=== PATIENT | female | born 1985 | race Caucasian/White ===

== ENCOUNTER 2016-07-21 16:46 | Inpatient (IN) | payer BC ==
[~2016-07-21] VITALS: Ht 170.2 cm; Wt 83.5 kg
[~2016-07-21 16:46] MED LIST: BENZ56AE TP; CODE-54 PO; DCS100C PO; FRS325T PO; Ibuprofen PO; PRNMV1T PO
[2016-07-21 17:07] VITALS: BP 132/84
[2016-07-21 17:25] LABS: BILIRUBIN,URINE NEGATIVE (NEGATIVE); KETONES,URINE 3+ (NEGATIVE); LEUKOCYTE ESTERASE ,URINE 3+ (NEGATIVE); NITRITE,URINE NEGATIVE (NEGATIVE); PH,URINE 8 (5-9); PROTEIN,URINE NEGATIVE (NEGATIVE); UROBILINOGEN,URINE NORMAL (NORMAL)
[2016-07-21] MEDS ORDERED: D5 LR IV SOLUTION 1,000 ML IV ONE (17:34)
[2016-07-21 17:35] LABS: SQUAMOUS EPITHELIAL CELL,UR >50 /HPF; WBC,URINE 50-100 /HPF
[2016-07-21] MEDS ORDERED: D5 LR IV SOLUTION 1,000 ML IV SCH (17:45)
[2016-07-21] MEDS: D5 LR IV SOLUTION 1,000 ML IV SCH ×2 (17:52→19:00)
--- NOTE | 2016-07-21 17:58 | History & Physical-OB ---
OB - Chief Complaint & HPI Date Date of Admission: Date of Admission: Chief Complaint/History OB-Reason for Admission/Chief: Hx : 2 Hx Para: 1 Expected Date of Delivery: Aug 05, 2016 Gestational Age in Weeks: 37 Gestational Age in Days: 6 Other reason for admission: Twila is a 30 y/o @ 37w6d patient of Dr. Foss who presents today with nausea, vomiting, abdominal pain and contractions. Pt reports she was just seen yesterday and was 1cm dilated. She was up most of the night with contractions (not overly painful, but reports she did not have painful ctx with her daughter who is almost 3 y/o either). Denies gushes of fluid like her water broke. Fetus is active. Reports cheeks are flushed and she feels feverish and chilled off and on today but has not taken her temp or any meds. Did have emesis overnight and hasn't consumed much PO intake since. No sick contacts although daughter has had a cough. uncomplicated, Rh negative status, GBSuria. History of Labs See summary Rh neg GBSuria Allergies and Home Medications Allergies Coded Allergies: No Known Drug Allergies (Unverified , 11/10/13) Home Medications Acetaminophen/Codeine 1 Tab Tablet, 1-2 TAB PO Q4H PRN for MODERATE TO SEVERE PAIN, #30 Prescribed by: VIGNESH FOSS on 11/12/13 0837 Benzocaine/Menthol 56 Ml Aerosol, 56 ML TP UD PRN for PAIN, #1 Prescribed by: VIGNESH FOSS on 11/12/13 0837 Docusate Sodium 100 Mg Cap, 100 MG PO BID PRN for CONSTIPATION, #20 Prescribed by: VIGNESH FOSS on 11/12/13 0837 Ferrous Sulfate 325 Mg Tab, 325 MG PO DAILY, #60 Prescribed by: VIGNESH FOSS on 11/12/13 0837 Multivit/Min/Fol Ac/Iron/Pren 1 Ea Tab, 1 EA PO DAILY@0700, #60 Prescribed by: VIGNESH FOSS on 11/12/13 0837 [Ibuprofen] 600 MG TAB, 600 MG PO Q6H PRN for PAIN, #60 Prescribed by: VIGNESH FOSS on 11/12/13 0837 OB - History Hx of Present Care: Yes Ultrasounds: Normal mid trimester US Obstetrical Complications: Other (Rh neg, gbsuria) Medical Complications: None Information Induced Hypertension: No Maternal Gestational Diabetes: No Obstetrical History Hx : 2 Hx Para: 1 Hx Termination: No Hx Multiple Gestation: No Hx Stillbirth: No Hx Complication: No Hx Induced Hypertens: No Hx Maternal Gestational Diabet: No Delivery History Hx Dystocia: No Hx Large For Gestational Age I: No Hx Small for Gestational Age I: No Hx Section: No Hx Vaginal Delivery Post C-Sec: No Hx Blood Disorders: No Adverse Rxn to Tranfusion: No Patient Past Medical History non-contributory Social History/Family History HIV/AIDS: No Recent Infectious Disease Expo: No Sexually Transmitted Disease: No Alcohol Use: Denies Use Smoking Cessation: Never smoker Immunizations Hepatitis A: No Hepatitis B: Yes Tetanus Booster (TDap): Less than 5yrs OB - Admission Exam Physical Exam Vitals: see brush holder inspector FHR 170s/min to mod variability/reactive, frequent loss of contact but no definite decelerations seen TOCO -05/21 Heart: Other Lungs: Clear Abdomen: Gravid (and non-tender) Cervical Dilatation: 2cm Effacement: 50% Station: -2 Membranes: Intact (palpable membrane) Accelerations: Accelerations Present Decelerations: No Decelerations Short Term Variability: Present Residential Variability: Average (6-25) Contractions on Admission: 6-10 Minutes Apart Labs Laboratory Tests Test 07/21/16 17:15 Range/Units Urine Color YELLOW Urine Clarity VERY CLOUDY H Urine pH 8 5-9 Urine Specific [place] 1.010 L 1.016-1.022 Urine Protein NEGATIVE NEGATIVE Urine Glucose (UA) NEGATIVE NEGATIVE Urine Ketones 3+ H NEGATIVE Urine Nitrite NEGATIVE NEGATIVE Urine Bilirubin NEGATIVE NEGATIVE Urine Urobilinogen NORMAL NORMAL MG/DL Urine Leukocyte Esterase 3+ H NEGATIVE Urine RBC (Auto) NEGATIVE NEGATIVE Urine RBC NONE /HPF Urine WBC 50-100 H /HPF Urine Squamous Epithelial Cells >50 H /HPF Urine Crystals NONE /LPF Urine Bacteria LARGE H /HPF Urine Casts NONE /LPF Urine Mucus NEGATIVE /LPF Urine Culture Indicated NO OB - Assessment/Plan/Diagnosis Plan Other Plan 30 y/o @ 37w6d with tachycardia, maternal subjective fevers/chills , contractions. Rh neg Patient of Dr. Foss Reviewed with pt my concern for tachycardia. Given her symptoms, could be r/t dehydration and poor po intake, but I am concerned she has been feeling feverish. She does not appear to be ruptured, but will check BPP. Will start IV and bolus in one liter of D5LR. Check CBC, CMP. Also check flu swab given her daughter's symptoms. If tracing improves and all studies reassuring, could consider discharge home but may need to consider IOL if tachycardia unresolved. She has changed SVE from 1cm in office yesterday to 2cm this AM so this could also represent early labor although I could not explain maternal/ tachycardia typically with just early labor. Will watch closely and await all studies. Plan discussed with pt and . RADHA MARINELLI MD Jul 21, 2016 17:58
[2016-07-21 18:08] LABS: BASOPHILS % (AUTO) 0 % (0-10); EOSINOPHILS % (AUTO) 0 % (0-10); LYMPHOCYTES # (AUTO) 0.7 X 10^3 (1.0-4.0); LYMPHOCYTES % (AUTO) 3 % (12-44); MEAN CORPUSCULAR HEMOGLOBIN 29 PG (25-34); MEAN CORPUSCULAR HGB CONC 33 G/DL (32-36); MEAN CORPUSCULAR VOLUME 89 FL (80-99); MEAN PLATELET VOLUME 11.4 FL (7.4-10.4); MONOCYTES % (AUTO) 5 % (0-12); NEUTROPHILS # (AUTO) 18.3 X 10^3 (1.8-7.8); NEUTROPHILS % (AUTO) 91 % (42-75); PLATELET COUNT 196 10^3/uL (130-400); RED BLOOD COUNT 4.26 10^6/uL (4.35-5.85); RED CELL DISTRIBUTION WIDTH 13.4 % (10.0-14.5); WHITE BLOOD COUNT 19.9 10^3/uL (4.3-11.0)
[2016-07-21] MEDS ORDERED: ACETAMINOPHEN 500 MG TAB (TYLENOL) PO NR (18:15)
[2016-07-21] MEDS ORDERED: ACETAMINOPHEN 500 MG TAB (TYLENOL) PO ONE (18:15)
[2016-07-21 18:27] LABS: ALANINE AMINOTRANSFERASE 17 U/L (0-55); ALBUMIN 3.4 G/DL (3.2-4.5); ANION GAP 12 MMOL/L (5-14); ASPARTATE AMINO TRANSFERASE 23 U/L (5-34); BILIRUBIN,TOTAL 0.5 MG/DL (0.1-1.0); BLOOD UREA NITROGEN 7 MG/DL (7-18); BUN/CREATININE RATIO 12; CALCIUM 9.3 MG/DL (8.5-10.1); CARBON DIOXIDE 21 MMOL/L (21-32); CHLORIDE 104 MMOL/L (98-107); CREATININE SERUM 0.58 MG/DL (0.60-1.30); GFR ESTIMATED > 60; GLUCOSE 81 MG/DL (70-105); POTASSIUM 3.7 MMOL/L (3.6-5.0); SODIUM 137 MMOL/L (135-145); TOTAL PROTEIN 6.4 G/DL (6.4-8.2)
[2016-07-21 18:36] LABS: LYMPHOCYTES % (MANUAL) 3 %; NEUTROPHILS % (MANUAL) 90 %
--- NOTE | 2016-07-21 18:42 | Diagnostic Imaging Report ---
INDICATION: tachycardia, maternal fever. EXAMINATION: biophysical profile was performed in the routine fashion. FINDINGS: Fetus scored 2 out of 2 in movement and posture and tone and amniotic fluid index. Amniotic fluid index was 11.3 cm. The fetus scored 0 out of two in breathing. heart rate is 197 beats per minute. Fetus is in cephalic presentation. IMPRESSION: biophysical profile score is 6/8 with score of 0 given for breathing. There is tachycardia with heart rate of 197 beats per minute. Amniotic fluid index is normal. Dictated by: Dictated on workstation # [id number]
[2016-07-21 19:00] VITALS: BP 126/96
[2016-07-21] MEDS ORDERED: OXYTOCIN/NORMAL SALINE 500 ML IV ONE (19:57)
[2016-07-21] MEDS ORDERED: NS (IVPB) 50 ML ONE (19:57)
[2016-07-21] MEDS ORDERED: AMPICILLIN 2000 MG INJECTION (IM/IV) ONE (19:57)
[2016-07-21] MEDS ORDERED: AMPICILLIN INJECTION 2,000 MG in NS (IVPB) 50 ML IV SCH (20:04)
[2016-07-21] MEDS ORDERED: OXYTOCIN/NORMAL SALINE 500 ML IV SCH (20:08)
[2016-07-21] MEDS ORDERED: CATHETER FLUSH 10 ML SYR IV PRN (20:15)
[2016-07-21 23:20] VITALS: BP 133/96
[2016-07-21 23:35] VITALS: BP 137/87
[2016-07-21] MEDS ORDERED: BUPIVACAINE 0.25% 30 ML (SENSORCAINE) VIAL ONE (23:47)
[2016-07-21 23:50] VITALS: BP 132/84
[2016-07-21] MEDS: AMPICILLIN INJECTION 1,000 MG in NS (IVPB) 50 ML IV SCH (23:59)
[2016-07-22] VITALS (56 sets, daily range): BP systolic 103–146; BP diastolic 56–95
[2016-07-22] MEDS ORDERED: EPIDURAL (SUFENTANIL 1 MCG/ML BUPIVACAINE 0.1%) 100 ML EP PRN
[2016-07-22] MEDS: SUFENTA 0.6MCG/ML BUPIVA 0.125 100 ML ONE (00:12)
[2016-07-22] MEDS ORDERED: LACTATED RINGERS 1,000 ML IV ONE (00:28)
[2016-07-22] MEDS ORDERED: NALOXONE 0.4 MG/ML 1 ML (NARCAN) VIAL IV PRN (00:30)
[2016-07-22] MEDS ORDERED: BUPIVACAINE 0.25% 30 ML (SENSORCAINE) VIAL INJ ONE (00:30)
[2016-07-22] MEDS ORDERED: EPIDURAL (SUFENTA 0.6MCG/ML BUPIVA 0.125%) 100 ML BAG EPI SCH (00:30)
[2016-07-22] MEDS ORDERED: ONDANSETRON 4 MG/2 ML (SDV) Z0FRAN IV PRN (00:30)
[2016-07-22] MEDS: AMPICILLIN INJECTION 1,000 MG in NS (IVPB) 50 ML IV SCH ×2 (03:56→08:07)
[2016-07-22] MEDS: D5 LR IV SOLUTION 1,000 ML IV SCH (03:56)
[2016-07-22] MEDS ORDERED: LIDOCAINE/EPI 1%-1:200,000 (XYLOCAINE) 30 ML VIAL ONE (10:25)
[2016-07-22] MEDS ORDERED: MINERAL OIL CONCENTRATE 99.9% 15 ML UDC ONE (10:25)
[2016-07-22] MEDS ORDERED: OXYTOCIN/NORMAL SALINE 500 ML IV SCH (11:09)
--- NOTE | 2016-07-22 11:14 | Discharge Inst-Women's Service ---
Discharge Inst-Women's Serv Depart Medication/Instructions New, Converted or Re-Newed RX: RX on Chart Consults/Follow Up Additional Follow Up: Yes Orders/Referrals Dr. Foss in 6 weeks Activity Activity: Activity as Tolerated Driving Instructions: No Driving for 1 Week NO SMOKING: NO SMOKING Nothing Inside Vagina: No Douching, No [place], No Tampons Diet Discharge Diet: No Restrictions Symptoms to Report to : Bleeding Excessive, Pain Increased, Fever Over 101 Degrees F, Vaginal Bleeding Increase, Questions/Concerns For Any Problems or Questions: Contact Your Physician Skin/Wound Care Bathing Instructions: Shower (x 2 weeks) VIGNESH FOSS DO Jul 22, 2016 11:14 am
[2016-07-22] MEDS ORDERED: MEASLES,MUMPS,RUBELLA 1 EA INJ SQ ONE (11:15)
[2016-07-22] MEDS ORDERED: TETANUS,DIPTH,PERTUSS P/F (BOOSTRIX) 0.5 ML VIAL IM ONE (11:15)
[2016-07-22] MEDS ORDERED: WITCH HAZEL(TUCKS) 40 EA JAR TOP PRN (11:15)
[2016-07-22] MEDS ORDERED: APAP 300 MG/CODEINE 30 MG (TYLENOL #3) TAB PO PRN (11:15)
[2016-07-22] MEDS ORDERED: DIBUCAINE (NUPERCAINAL) 1% OINT 30 GM TOP PRN (11:15)
[2016-07-22] MEDS ORDERED: BENZOCAINE/MENTHOL (DERMOPLAST) 56 ML CAN TP PRN (11:15)
[2016-07-22] MEDS ORDERED: FERR-74 PO (11:18)
[2016-07-22] MEDS ORDERED: IBUP-1773 PO (11:18)
[2016-07-22] MEDS ORDERED: ACET1TAB43 PO (11:18)
[2016-07-22] MEDS ORDERED: DOCU100C37 PO (11:18)
[2016-07-22] MEDS ORDERED: BENZ56AE2 TP (11:18)
--- NOTE | 2016-07-22 11:24 | OB Labor & Delivery Record ---
L&D History Date of Service Date of Service: Jul 22, 2016 History Expected Date of Delivery: Aug 05, 2016 Gestational Age in Weeks: 37 Hx : 2 Hx Para: 1 Complications Events: Routine care Operative Indications (Cesarea: N/A-Vaginal Delivery Intrapartal Events: None Other Complications Presentation of maternal leukocytosis with tachycardia, tachycardia which resolved after 2-4 hours of monitoring. L&D Stage1 Stage One Onset of Labor - Date: Jul 22, 2016 Monitors and Tracing Monitor Mode: External Heart Rate: 180 Monitor Accelerations: Uniform Monitor Decelerations: None Station: -2 Fpc Variability: Average (6-10) Short Term Variability: Present Presentation: Vertex Vital Signs VS - Last 72 Hours, by Label 07/21/16 07/21/16 07/21/16 07/21/16 17:07 17:27 19:00 19:20 Temp 99.2 98.8 98.4 Pulse 139 148 141 Resp 20 18 B/P (MAP) 132/84 126/96 Pulse Ox 98 97 O2 Delivery Room Air Room Air Room Air 07/21/16 07/21/16 07/21/16 07/21/16 19:35 20:10 20:20 20:35 Temp 97.7 Pulse 136 135 136 126 Resp 18 18 18 18 Pulse Ox 97 97 97 97 O2 Delivery Room Air Room Air Room Air Room Air 07/21/16 07/21/16 07/21/16 07/21/16 20:50 21:05 21:20 21:35 Pulse 129 128 137 137 Resp 18 18 18 18 Pulse Ox 97 96 97 97 O2 Delivery Room Air Room Air Room Air Room Air 07/21/16 07/21/16 07/21/16 07/21/16 21:50 22:05 22:20 22:35 Temp 97.0 Pulse 130 128 134 126 Resp 18 18 18 18 Pulse Ox 96 97 97 97 O2 Delivery Room Air Room Air Room Air Room Air 07/21/16 07/21/16 07/21/16 07/21/16 22:50 23:05 23:20 23:35 Pulse 118 121 131 126 Resp 18 18 18 18 B/P (MAP) 133/96 137/87 Pulse Ox 96 96 97 O2 Delivery Room Air Room Air Room Air Room Air 07/21/16 07/22/16 07/22/1613/17 23:50 00:05 00:10 00:15 Pulse 120 127 131 134 Resp 18 18 18 18 B/P (MAP) 132/84 137/88 131/86 126/76 Pulse Ox 98 98 97 O2 Delivery Room Air Room Air Room Air Room Air 07/22/16 07/22/16 07/22/16 07/22/16 00:20 00:25 00:30 00:35 Temp 96.9 Pulse 131 129 130 124 Resp 18 18 18 18 B/P (MAP) 131/79 133/75 127/58 118/63 Pulse Ox 97 99 99 99 O2 Delivery Room Air Room Air Room Air Room Air 07/22/16 07/22/16 07/22/16 07/22/16 00:55 01:10 01:25 01:40 Pulse 129 135 134 134 Resp 18 18 18 18 B/P (MAP) 119/68 115/65 118/69 115/60 Pulse Ox 98 96 99 97 O2 Delivery Room Air Room Air Room Air Room Air 07/22/16 07/22/16 07/22/16 07/22/16 01:55 02:10 02:25 02:40 Temp 98.3 Pulse 133 134 131 136 Resp 18 18 18 18 B/P (MAP) 117/65 132/78 118/74 144/84 Pulse Ox 98 98 98 97 O2 Delivery Room Air Room Air Room Air Room Air 07/22/16 07/22/16 07/22/16 07/22/16 02:55 03:10 03:25 03:40 Pulse 129 131 137 134 Resp 18 18 18 18 B/P (MAP) 134/79 127/69 134/82 123/74 Pulse Ox 96 96 98 98 O2 Delivery Room Air Room Air Room Air Room Air 07/22/16 07/22/16 07/22/16 07/22/16 03:55 04:10 04:25 04:40 Pulse 124 127 134 133 Resp 18 18 18 18 B/P (MAP) 126/67 110/64 115/71 Pulse Ox 97 96 97 97 O2 Delivery Room Air Room Air Room Air Room Air 07/22/16 07/22/16 07/22/16 07/22/16 04:55 05:10 05:25 05:40 Temp 99.0 Pulse 129 129 125 121 Resp 18 18 18 18 B/P (MAP) 120/77 116/68 127/77 110/62 Pulse Ox 96 96 99 95 O2 Delivery Room Air Room Air Room Air Room Air 07/22/16 07/22/16 07/22/16 07/22/16 05:55 06:10 06:25 06:40 Pulse 123 124 123 125 Resp 18 18 18 18 B/P (MAP) 103/56 105/58 124/74 122/80 Pulse Ox 95 96 97 95 O2 Delivery Room Air Room Air Room Air Room Air 07/22/16 07/22/16 06:55 07:10 Pulse 123 132 Resp 18 18 B/P (MAP) 128/86 129/89 Pulse Ox 96 97 O2 Delivery Room Air Room Air Rupture of Membranes Spontaneous Ruture of Membrane: No Amniotic Membrane Rupture Time: 0650 Amniotic Membrane Fluid Desc.: Clear Induction/Anesthesia Epidural Cath Placement - Time: 8 L&D Stage2 Stage Two Stage II Date: Jul 22, 2016 Monitors and Tracing Monitor Mode: External Heart Rate: 150 Monitor Accelerations: Uniform Monitor Decelerations: None Programming Equipment Operator Variability: Average (6-10) Position: Right Occiput Anterior Presentation: Vertex Cord Descript/Complications Cord Vessel Description: 3 Vessels Delivery Type Infant Delivery Method: Spontaneous Vaginal Anterior Shoulder: Left, Right Episiotomy/Perineal Laceration Laceraction(s)/Extensions: Yes Location Modifier: Left (left labial laceration) Degree (describe repair) repaired using 3-0 rapide Condition of Infant Delivery 1 minute Comment: 8 5 minute Comment: 9 Condition of Condition of Infant: Living Exam: No Observed Abnormalities live male weight pending Resuscitation Resuscitation: N/A - Spontaneous Resp L&D Stage3 Stage Three Stage III Date: Jul 22, 2016 Pictocin Pitocin Administration mu/min: 10 Pitocin ml/hr: 10 Pitocin Administration Comment: PITOCIN INCREASED PER PROTOCOL Placenta Delivery Placenta Delivery: Spontaneous Delivery Summary Summary blood loss >1000ml: No Vaginal blood loss >500ml: No 250 mL Attending at delivery: Vignesh Foss DO Condition of Delivery Examined: Cervix Examined, Uterus Explored Condition of Mother stable Condition of (s) stable VIGNESH FOSS DO Jul 22, 2016 11:23 am
[2016-07-22] MEDS: IBUPROFEN 600 MG (MOTRIN) TAB PO SCH ×2 (13:13→19:50)
[2016-07-22] MEDS ORDERED: CATHETER FLUSH 10 ML SYR IV SCH (14:00)
[2016-07-22] MEDS: DOCUSATE SODIUM 100 MG (COLACE) CAP PO SCH (19:54)
[2016-07-23] VITALS: BP 133/77
[2016-07-23] MEDS: SUFENTA 0.6MCG/ML BUPIVA 0.125 100 ML ONE (00:12)
[2016-07-23] MEDS: IBUPROFEN 600 MG (MOTRIN) TAB PO SCH ×2 (02:06→12:30)
[2016-07-23 04:00] VITALS: BP 120/74
[2016-07-23 06:47] LABS: BASOPHILS % (AUTO) 0 % (0-10); EOSINOPHILS # (AUTO) 0.1 10^3/uL (0.0-0.3); EOSINOPHILS % (AUTO) 1 % (0-10); LYMPHOCYTES # (AUTO) 1.2 X 10^3 (1.0-4.0); LYMPHOCYTES % (AUTO) 12 % (12-44); MEAN CORPUSCULAR HEMOGLOBIN 29 PG (25-34); MEAN CORPUSCULAR HGB CONC 32 G/DL (32-36); MEAN CORPUSCULAR VOLUME 91 FL (80-99); MEAN PLATELET VOLUME 11.4 FL (7.4-10.4); MONOCYTES # (AUTO) 0.6 X 10^3 (0.0-1.0); MONOCYTES % (AUTO) 6 % (0-12); NEUTROPHILS # (AUTO) 7.6 X 10^3 (1.8-7.8); NEUTROPHILS % (AUTO) 80 % (42-75); PLATELET COUNT 184 10^3/uL (130-400); RED BLOOD COUNT 4.03 10^6/uL (4.35-5.85); RED CELL DISTRIBUTION WIDTH 13.5 % (10.0-14.5); WHITE BLOOD COUNT 9.6 10^3/uL (4.3-11.0)
[2016-07-23] MEDS ORDERED: PRENATAL VITAMIN 1 EA TAB PO SCH (07:00)
[2016-07-23] MEDS ORDERED: FERROUS SULF 325 MG (IRON) TAB PO SCH (07:00)
[2016-07-23 08:00] VITALS: BP 132/87
[2016-07-23] MEDS ORDERED: DOCUSATE CALCIUM 240 MG (SURFAK) CAP PO SCH (09:00)
--- NOTE | 2016-07-23 10:41 | Postpartum Progress Note ---
Note Note Day # 1 Baby to be transferred to [facility] due to cardiac enlargement and possible tetrology of [place] Subjective: Patient is without complaints. Ambulating, voiding. Tolerating a regular diet without nausea or vomiting. Normal lochia. Pain is well controlled with oral pain medications. breast feeding. Objective: Laboratory Tests Test 07/23/16 06:30 Range/Units White Blood Count 9.6 4.3-11.0 10^3/uL Red Blood Count 4.03 L 4.35-5.85 10^6/uL Hemoglobin 11.6 11.5-16.0 G/DL Hematocrit 37 35-52 % Mean Corpuscular Volume 91 80-99 FL Mean Corpuscular Hemoglobin 29 25-34 PG Mean Corpuscular Hemoglobin Concent 32 32-36 G/DL Red Cell Distribution Width 13.5 10.0-14.5 % Platelet Count 184 130-400 10^3/uL Mean Platelet Volume 11.4 H 7.4-10.4 FL Neutrophils (%) (Auto) 80 H 42-75 % Lymphocytes (%) (Auto) 12 12-44 % Monocytes (%) (Auto) 6 0-12 % Eosinophils (%) (Auto) 1 0-10 % Basophils (%) (Auto) 0 0-10 % Neutrophils # (Auto) 7.6 1.8-7.8 X 10^3 Lymphocytes # (Auto) 1.2 1.0-4.0 X 10^3 Monocytes # (Auto) 0.6 0.0-1.0 X 10^3 Eosinophils # (Auto) 0.1 0.0-0.3 10^3/uL Basophils # (Auto) 0.0 0.0-0.1 10^3/uL Vital Sign - Last 12Hours 07/23/16 07/23/16 07/23/16 00:00 04:00 08:00 Temp 98.4 98.7 97.0 Pulse 114 74 90 Resp 17 18 20 B/P (MAP) 133/77 120/74 132/87 Pulse Ox 97 99 98 O2 Delivery Room Air Room Air Room Air Intake and Output 07/23/16 00:00 Intake Total 1500 ml Balance 1500 ml Physical Exam: General - Alert and oriented, no apparent distress Abdomen - Soft, appropriately tender to palpation, non-distended, fundus firm at umbilicus Extremities - no edema, negative Jair's bilaterally Assessment: 1. post- day # 1, status post spontaneous vaginal delivery. Recovering well, hemodynamically stable Plan: Routine care. Encourage breast feeding. Encourage ambulation. Plan for discharge today Vitals - Labs Vital Signs - I&O Vital Signs Date Time Temp Pulse Resp B/P (MAP) Pulse Ox O2 Delivery O2 Flow Rate FiO2 07/23/16 08:00 97.0 90 20 132/87 98 Room Air 07/23/16 04:00 98.7 74 18 120/74 99 Room Air 07/23/16 00:00 98.4 114 17 133/77 97 Room Air 07/22/16 20:00 98.4 84 19 125/82 98 Room Air 07/22/16 13:10 121 18 140/95 Room Air 07/22/16 12:55 120 18 140/87 Room Air 07/22/16 12:40 118 18 131/84 Room Air 07/22/16 12:25 98.0 116 18 128/85 Room Air 07/22/16 12:10 120 18 131/78 Room Air 07/22/16 11:55 122 18 130/83 Room Air 07/22/16 11:51 122 18 134/87 Room Air 07/22/16 11:26 123 18 146/64 Room Air 07/22/16 11:10 125 18 133/87 Room Air 07/22/16 10:55 133 18 125/78 Room Air 07/22/16 10:42 131 18 144/91 100 Room Air I & O 07/23/16 06:59 Intake Total 2050 ml Balance 2050 ml Labs Laboratory Tests 07/23/16 06:30: White Blood Count 9.6, Red Blood Count 4.03L, Hemoglobin 11.6, Hematocrit 37, Mean Corpuscular Volume 91, Mean Corpuscular Hemoglobin 29, Mean Corpuscular Hemoglobin Concent 32, Red Cell Distribution Width 13.5, Platelet Count 184, Mean Platelet Volume 11.4H, Neutrophils (%) (Auto) 80H, Lymphocytes (%) (Auto) 12, Monocytes (%) (Auto) 6, Eosinophils (%) (Auto) 1, Basophils (%) (Auto) 0, Neutrophils # (Auto) 7.6, Lymphocytes # (Auto) 1.2, Monocytes # (Auto) 0.6, Eosinophils # (Auto) 0.1, Basophils # (Auto) 0.0 Microbiology 07/21/16 Influenza Types A,B Antigen (AARTI) - Final, Complete 07/21/16 Urine Culture - Preliminary, Resulted Strep Agalactiae Group B LYNETTE COON DO Jul 23, 2016 10:41
[2016-07-23] MEDS: DOCUSATE SODIUM 100 MG (COLACE) CAP PO SCH (12:30)
--- NOTE | 2016-07-23 14:07 | Anesthesia-Regional Post-Op ---
Regional Patient Condition Mental Status: Alert, Oriented x3 Circulation: Same as Pre-Op Headache: Absent Sensation: Full Recovery Motor Block: Absent Post Op Complications Complications None Follow Up Care/Instructions Patient Instructions None needed. Anesthesia/Patient Condition Patient is doing well, no complaints, stable vital signs, no apparent adverse anesthesia problems. ANTONIO HERNANDEZ DO Jul 23, 2016 14:07
== END 2016-07-23 14:10 | disposition home or self-care (01) | DRG 775 ==
LOC: WSo 16:46 → LDRP 16:49 → WSo 18:55 → LDRP 18:55
PROVIDERS: ADMIT Obstetrics & Gynecology; ATTEND Obstetrics & Gynecology
PROC: 0HQ9XZZ Repair Perineum Skin, External Approach (ICD-10-PCS; principal; 2016-07-22)
PROC: 10E0XZZ Delivery of Products of Conception, External Approach (ICD-10-PCS; 2016-07-22)
DX: O76 Abnormality in fetal heart rate and rhythm complicating labor and delivery (principal); O70.0 First degree perineal laceration during delivery; Z3A.37 37 weeks gestation of pregnancy; Z37.0 Single live birth
CPT/HCPCS: 36415; 76819; 80053; 81000; 83033; 85007; 85025; 85027; 86850; 86900; 86901; 87088; 87804; 93005; 99212

== ENCOUNTER 2017-12-20 06:15 | Outpatient (CLI) | payer BC ==
[~2017-12-20] VITALS: Ht 170.2 cm; Wt 65.8 kg
[~2017-12-20 06:15] MED LIST changes: +ACET1TAB43 PO; +BENZ56AE2 TP; +DOCU100C37 PO; +FERR325T18 PO; +IBUP-1773 PO
[2017-12-20] MEDS ORDERED: PREN-8 PO (10:47)
== END 2017-12-20 10:52 | disposition home or self-care (01) ==
LOC: PREOP 06:15
PROVIDERS: ATTEND Obstetrics & Gynecology
DX: Z01.818 Encounter for other preprocedural examination (principal)

== ENCOUNTER 2017-12-22 06:13 | Day surgery (SDC) | payer BC ==
[~2017-12-22] VITALS: Ht 170.2 cm; Wt 65.8 kg
[~2017-12-22 06:13] MED LIST changes: +PREN-8 PO
[2017-12-22 06:35] VITALS: BP 111/78
[2017-12-22] MEDS ORDERED: SCOPOLAMINE 1.5 MG (TRANSDERM-SCOP) PATCH TOP ONE (06:45)
[2017-12-22] MEDS ORDERED: ONDANSETRON 4 MG/2 ML (SDV) Z0FRAN IV ONE (06:45)
[2017-12-22] MEDS ORDERED: FAMOTIDINE 20MG/2ML IV (PEPCID) IV ONE (06:45)
[2017-12-22] MEDS ORDERED: LIDOCAINE PF 2% 2 ML (XYLOCAINE) VIAL ONE (06:51)
[2017-12-22] MEDS ORDERED: fentaNYL INJECTION 100 MCG/2 ML AMP ONE (06:51)
[2017-12-22] MEDS ORDERED: proPOfol 200 MG/20 ML (DIPRIVAN) VIAL IV ONE (06:51)
[2017-12-22] MEDS ORDERED: DEXAMETHASONE 10 MG/ML (DECADRON) 1 ML VIAL ONE (06:51)
[2017-12-22] MEDS ORDERED: MIDAZOLAM 2 MG/2 ML (VERSED) VIAL ONE (06:52)
[2017-12-22 06:57] LABS: BASOPHILS % (AUTO) 0 % (0-10); EOSINOPHILS # (AUTO) 0.1 10^3/uL (0.0-0.3); EOSINOPHILS % (AUTO) 2 % (0-10); HEMATOCRIT 38 % (35-52); HEMOGLOBIN 12.8 G/DL (11.5-16.0); LYMPHOCYTES # (AUTO) 1.1 X 10^3 (1.0-4.0); LYMPHOCYTES % (AUTO) 19 % (12-44); MEAN CORPUSCULAR HEMOGLOBIN 29 PG (25-34); MEAN CORPUSCULAR HGB CONC 34 G/DL (32-36); MEAN CORPUSCULAR VOLUME 87 FL (80-99); MEAN PLATELET VOLUME 10.1 FL (7.4-10.4); MONOCYTES # (AUTO) 0.4 X 10^3 (0.0-1.0); MONOCYTES % (AUTO) 6 % (0-12); NEUTROPHILS # (AUTO) 4.5 X 10^3 (1.8-7.8); NEUTROPHILS % (AUTO) 74 % (42-75); PLATELET COUNT 244 10^3/uL (130-400); RED BLOOD COUNT 4.35 10^6/uL (4.35-5.85); RED CELL DISTRIBUTION WIDTH 12.6 % (10.0-14.5); WHITE BLOOD COUNT 6.1 10^3/uL (4.3-11.0)
[2017-12-22] MEDS: LACTATED RINGERS 1,000 ML IV PRN ×2 (06:59→07:52)
--- NOTE | 2017-12-22 07:23 | Progress Note-Pre Operative ---
Pre-Operative Progress Note H&P Reviewed The H&P was reviewed, patient examined and no changes noted. Date Seen by Provider: Dec 22, 2017 Time Seen by Provider: 07:10 Date H&P Reviewed: Dec 22, 2017 Time H&P Reviewed: 07:15 Pre-Operative Diagnosis: Missed VIGNESH Bolton DO Dec 22, 2017 7:23 am
--- NOTE | 2017-12-22 07:24 | Discharge Inst-Women's Service ---
Discharge Inst-Women's Serv Depart Medication/Instructions New, Converted or Re-Newed RX: RX on Chart Consults/Follow Up Additional Follow Up: Yes Orders/Referrals Dr. Foss in 3-4 Activity Activity: Activity as Tolerated Driving Instructions: No Driving for 1 Week NO SMOKING: NO SMOKING Nothing Inside Vagina: No Douching, No [place], No Tampons Diet Discharge Diet: No Restrictions Symptoms to Report to : Bleeding Excessive, Pain Increased, Fever Over 101 Degrees F, Vaginal Bleeding Increase, Questions/Concerns For Any Problems or Questions: Contact Your Physician Skin/Wound Care Bathing Instructions: Shower (x 2 weeks) VIGNESH FOSS DO Dec 22, 2017 7:24 am
[2017-12-22] MEDS ORDERED: IBUP-1773 PO (07:25)
[2017-12-22] MEDS ORDERED: ACET-789 PO (07:25)
[2017-12-22] MEDS ORDERED: LACTATED RINGERS 1,000 ML IV ONE (07:46)
[2017-12-22] MEDS ORDERED: SEVOFLURANE (ULTANE) 15 ML INHAL SOLN ONE (07:46)
[2017-12-22] MEDS ORDERED: MEPERIDINE (DEMEROL) INJ 50 MG/ML IVP ONE (08:00)
[2017-12-22] MEDS ORDERED: ONDANSETRON 4 MG/2 ML (SDV) Z0FRAN IVP PRN (08:00)
[2017-12-22] MEDS ORDERED: HYDROmorphone 2 MG/ML VIAL (DILAUDID) IV ONE (08:00)
[2017-12-22] MEDS ORDERED: fentaNYL INJECTION 100 MCG/2 ML AMP IVP ONE (08:00)
[2017-12-22] MEDS ORDERED: PROMETHAZINE INJ 25 MG/ML (PHENERGAN) AMP IVP ONE (08:00)
[2017-12-22 08:45] VITALS: BP 115/78
[2017-12-22 09:15] VITALS: BP 111/76
[2017-12-22 09:40] VITALS: BP 111/76
[2017-12-22 09:44] VITALS: BP 117/79
--- NOTE | 2017-12-22 13:50 | OPERATIVE REPORT ---
DATE OF SERVICE: 12/22/2017 PREOPERATIVE DIAGNOSIS: A 32-year-old female with missed AB. POSTOPERATIVE DIAGNOSIS: A 32-year-old female with missed. PROCEDURE: Suction D and C. SURGEON: Vignesh Foss DO ANESTHESIA: General. ESTIMATED BLOOD LOSS: 300 mL. URINE OUTPUT: 50 mL, clear drained at the start of the procedure. FLUIDS: 1200 mL lactated Ringer's solution. FINDINGS: Moderate amount of products of conception as well as a cervical polyp. These two specimens were sent as separate. Specimens sent are cervical polyp biopsy and products of conception. INDICATION FOR PROCEDURE: A 32-year-old female patient that was in my office initially for visit and was found to have demise at approximately 6 weeks on ultrasound as well as the following quantitative beta hCG. I discussed with the patient conservative management and we waited approximately two weeks prior to proceeding with more aggressive management, but at that point, she wished to proceed with D and C. Risks of procedure were discussed with her and her in detail including risk of bleeding, infection, damaging the uterus as well as postoperative expectations, recovery timeframe, and expectations in followup. After everything was discussed with the patient, all her questions were answered, consent was obtained. The patient was taken to the operating room. OPERATIVE REPORT IN DETAIL: Once in the operating room, anesthesia was found to be adequate. She was placed in dorsal lithotomy position, prepped and draped in normal sterile fashion. The bladder was then drained using straight catheterization. A weighted speculum was inserted in the patient's vagina. A right angle retractor was used to visualize the cervix, which was grasped at 12 o'clock position using a long Allis clamp. I then gently sound the uterine cavity depth, which was found to be 7 cm. I gently dilated the cervix using Letitia dilators to maximum dilatation of 8 mm. I then selected an #8 rigid suction curette and attached it to the Stanton device. I placed a curette into the endometrial cavity and activated the Stanton device. The suction is able to reach a maximum pressure of 55 mmHg, at which point, I methodically on several passes, cleared the endometrial cavity by both rotating the curette and making several passes. After this was done, I performed a gentle curetting of the endometrial cavity as well. There was no residual tissue. I made one final pass with the Stanton suction curette after which bleeding was noted to be minimal. I then grasped the endometrial polyp at the external cervical os using a long ring forcep twisting it off. There was a small amount of bleeding noted from the pedicle, which I made hemostatic using silver nitrate. After which, there was no active bleeding noted from the cervix or from the pedicle site. The patient tolerated the procedure well and was taken to recovery area in stable condition. Lap and sponge counts were correct at the end of procedure, instrument count was correct as well. Job ID: [id number] DocumentID: [id number] Dictated Date: 12/22/2017 09:46:39 Planting Material Unloader Date: 12/22/2017 13:50:33 Dictated By: VIGNESH FOSS DO
--- NOTE | 2017-12-22 13:59 | Anesthesia-General Post-Op ---
General Patient Condition Mental Status/LOC: Same as Preop Cardiovascular: Satisfactory Nausea/Vomiting: Absent Respiratory: Satisfactory Pain: Controlled Complications: Absent Post Op Complications Complications None Follow Up Care/Instructions Patient Instructions None needed. Anesthesia/Patient Condition Patient Condition Patient is doing well, no complaints, stable vital signs, no apparent adverse anesthesia problems. No complications reported per nursing. YURIDIA VALDES CRNA Dec 22, 2017 13:59
== END 2017-12-22 09:50 | disposition home or self-care (01) ==
LOC: SDC 06:13
PROVIDERS: ATTEND Obstetrics & Gynecology
DX: O02.1 Missed abortion (principal); N84.1 Polyp of cervix uteri
CPT/HCPCS: 36415; 85025; 86850; 86900; 86901; 87081; 88305

== ENCOUNTER → 2018-10-18 | Outpatient (CLI) | payer BC ==
[~2018-10-18] MED LIST changes: +ACET-789 PO
--- NOTE | 2018-10-18 16:24 | Diagnostic Imaging Report ---
INDICATION: Undergoing survey assessment during normal . TECHNIQUE: Multiple real-time grayscale images were obtained over the gravid uterus. COMPARISON: None. FINDINGS: There is presence of a single viable intrauterine currently in cephalic presentation. Amniotic fluid within normal limits. Placenta along the anterior aspect and without evidence for previa. cardiac activity demonstrated at 156 beats per minute. Visualized anatomical structures including the kidneys, bladder, stomach, intracranial structures, four-chamber heart, three-vessel cord and cord insertion site appearing unremarkable. The spine is not well evaluated given positioning. Cervical length approximately 3.7 cm. Maternal adnexa not visualized. Biometrical measurements are as follows: Biparietal 5.16 cm, age 21 weeks 5 days. Head circumference 18.35 cm, age 20 weeks 6 days. Abdominal circumference 16.09 cm, age 21 weeks 2 days. Femur length 3.40 cm, age 20 weeks 5 days. Sonographic estimate age: 21 weeks 1 days. Sonographic estimated date of delivery: 02/27/2019. Estimated Weight: 389 gm (+/- 57 gm). LMP percentile: 75%. heart rate: 156 beats per minute. number: 1 of 1. IMPRESSION: 1. Single viable intrauterine currently in a cephalic presentation, sonographic estimated age 21 weeks 1 day for an estimated date of delivery 02/27/2019. 2. No abnormality is noted at this time. However, the spine cannot be well visualized given positioning. Dictated by: Dictated on workstation # [id number]
== END ==
LOC: RAD 14:51
PROVIDERS: ATTEND Obstetrics & Gynecology
DX: Z36.89 Encounter for other specified antenatal screening (principal); Z3A.21 21 weeks gestation of pregnancy
CPT/HCPCS: 76805

== ENCOUNTER 2019-02-21 04:26 | Inpatient (IN) | payer BC, OTHER ==
[~2019-02-21] VITALS: Ht 170.2 cm; Wt 87.3 kg
[2019-02-21] VITALS (24 sets, daily range): BP systolic 99–147; BP diastolic 55–85
--- NOTE | 2019-02-21 04:35 | NUR ---
DANIELLA ARROYO presented to unit via W/C from HOME/ED, accompanied by SO, with c/o CONTRACTIONS,PRESSURE. DANIELLA ARROYO weighed, gowned, voided, and to bed. EFHM and TOCO applied, VS taken. DANIELLA ARROYO oriented to bed controls, call light, TV, heat, and A/C controls.
[2019-02-21] MEDS ORDERED: D5 LR IV SOLUTION 1,000 ML IV SCH (05:02)
[2019-02-21] MEDS ORDERED: NS IV 500 ML 500 ML ONE (05:05)
[2019-02-21] MEDS ORDERED: D5 LR IV SOLUTION 1,000 ML IV ONE (05:05)
[2019-02-21] MEDS ORDERED: NS IV 500 ML 500 ML IV ONE (05:15)
[2019-02-21 05:41] LABS: BILIRUBIN,URINE NEGATIVE (NEGATIVE); CLARITY,URINE CLEAR; COLOR,URINE YELLOW; GLUCOSE, URINE (UA) NEGATIVE (NEGATIVE); KETONES,URINE NEGATIVE (NEGATIVE); LEUKOCYTE ESTERASE ,URINE NEGATIVE (NEGATIVE); NITRITE,URINE NEGATIVE (NEGATIVE); PROTEIN,URINE NEGATIVE (NEGATIVE)
[2019-02-21 05:42] LABS: BASOPHILS % (AUTO) 0 % (0-10); EOSINOPHILS % (AUTO) 0 % (0-10); HEMATOCRIT 37 % (35-52); HEMOGLOBIN 11.8 G/DL (11.5-16.0); LYMPHOCYTES # (AUTO) 0.6 X 10^3 (1.0-4.0); LYMPHOCYTES % (AUTO) 3 % (12-44); MEAN CORPUSCULAR HEMOGLOBIN 29 PG (25-34); MEAN CORPUSCULAR HGB CONC 32 G/DL (32-36); MEAN CORPUSCULAR VOLUME 90 FL (80-99); MEAN PLATELET VOLUME 11.4 FL (7.4-10.4); MONOCYTES % (AUTO) 6 % (0-12); NEUTROPHILS # (AUTO) 17.2 X 10^3 (1.8-7.8); NEUTROPHILS % (AUTO) 91 % (42-75); PLATELET COUNT 181 10^3/uL (130-400); RED CELL DISTRIBUTION WIDTH 13.2 % (10.0-14.5); WHITE BLOOD COUNT 18.9 10^3/uL (4.3-11.0)
[2019-02-21 05:47] LABS: BACTERIA,URINE TRACE /HPF; WBC,URINE 0-2 /HPF
[2019-02-21] MEDS ORDERED: CATHETER FLUSH 10 ML SYR IV SCH ×2 (06:00→14:00)
[2019-02-21 06:06] LABS: LYMPHOCYTES % (MANUAL) 1 %; MONOCYTES % (MANUAL) 7 %; NEUTROPHILS % (MANUAL) 92 %; RBC MORPH NORMAL
--- NOTE | 2019-02-21 07:30 | NUR ---
Dr. Diaz called to check on pt, update given, new orders rc'd for Pitocin protocol.
[2019-02-21] MEDS ORDERED: OXYTOCIN/NORMAL SALINE 500 ML IV SCH ×2 (07:32→12:08)
--- NOTE | 2019-02-21 08:01 | History & Physical-OB ---
OB - Chief Complaint & HPI Date/Time Date of Admission: Date of Admission: Feb 21, 2019 at 04:59 Date seen by a Provider: Feb 21, 2019 Time Seen by a Provider: 07:55 Chief Complaint/History OB-Reason for Admission/Chief: Onset of Labor Hx : 4 Hx Para: 2 Expected Date of Delivery: Mar 04, 2019 Gestational Age in Weeks: 38 Gestational Age in Days: 3 Admission Nurse Assessment Rev: Yes Other Patient admitted with persistent and maternal tachycardia due to 38 week, plan for delivery Allergies and Home Medications Allergies Coded Allergies: No Known Drug Allergies (Unverified , 11/10/13) Home Medications Vit W-Ca,Fe,FA(<1 mg) 1 Each Tablet, 1 EACH PO DAILY, (Reported) Patient Home Medication List Home Medication List Reviewed: Yes OB - History Hx of Present Care: Yes Ultrasounds: Normal mid trimester US Obstetrical Complications: None Medical Complications: None Obstetrical History Hx : 4 Hx Para: 2 Hx Termination: No Hx Total # of Abortions (Spona: 1 Hx Multiple Gestation: No Hx Stillbirth: No Hx Complication: No Hx Induced Hypertens: No Hx Maternal Gestational Diabet: No Delivery History Hx Dystocia: No Hx Large For Gestational Age I: No Hx Small for Gestational Age I: No Hx Section: No Hx Vaginal Delivery Post C-Sec: No Hx Blood Disorders: No Adverse Rxn to Tranfusion: No Patient Past Medical History non-contributory Social History/Family History HIV/AIDS: No Recent Infectious Disease Expo: No Sexually Transmitted Disease: No Alcohol Use: Denies Use Recreational Drug Use: No 2nd Hand Smoke Exposure: No Immunizations Hepatitis A: No Hepatitis B: Yes Tetanus Booster (TDap): Less than 5yrs OB - Admission Exam Physical Exam Vitals: Vital Signs 02/21/19 05:00 Temp 37.2 Pulse 140 Resp 18 Pulse Ox 97 O2 Delivery Room Air HEENT: NCAT Heart: Rhythm Normal Lungs: Clear Abdomen: Gravid Extremities: Normal Reflexes: Normal Cervical Dilatation: 3cm Effacement: 50% Station: -1 Membranes: Intact Heart Rate: 130's Accelerations: Accelerations Present Decelerations: No Decelerations Short Term Variability: Present Mcfp Variability: Average (6-25) Contractions on Admission: < 5 Minutes Apart Intensity: Firm Labs Laboratory Tests Test 02/21/19 05:15 Range/Units White Blood Count 18.9 H 4.3-11.0 10^3/uL Red Blood Count 4.08 L 4.35-5.85 10^6/uL Hemoglobin 11.8 11.5-16.0 G/DL Hematocrit 37 35-52 % Mean Corpuscular Volume 90 80-99 FL Mean Corpuscular Hemoglobin 29 25-34 PG Mean Corpuscular Hemoglobin Concent 32 32-36 G/DL Red Cell Distribution Width 13.2 10.0-14.5 % Platelet Count 181 130-400 10^3/uL Mean Platelet Volume 11.4 H 7.4-10.4 FL Neutrophils (%) (Auto) 91 H 42-75 % Lymphocytes (%) (Auto) 3 L 12-44 % Monocytes (%) (Auto) 6 0-12 % Eosinophils (%) (Auto) 0 0-10 % Basophils (%) (Auto) 0 0-10 % Neutrophils # (Auto) 17.2 H 1.8-7.8 X 10^3 Lymphocytes # (Auto) 0.6 L 1.0-4.0 X 10^3 Monocytes # (Auto) 1.0 0.0-1.0 X 10^3 Eosinophils # (Auto) 0.0 0.0-0.3 10^3/uL Basophils # (Auto) 0.0 0.0-0.1 10^3/uL Neutrophils % (Manual) 92 % Lymphocytes % (Manual) 1 % Monocytes % (Manual) 7 % Blood Morphology Comment NORMAL Urine Color YELLOW Urine Clarity CLEAR Urine pH 8.0 5-9 Urine Specific [place] 1.015 L 1.016-1.022 Urine Protein NEGATIVE NEGATIVE Urine Glucose (UA) NEGATIVE NEGATIVE Urine Ketones NEGATIVE NEGATIVE Urine Nitrite NEGATIVE NEGATIVE Urine Bilirubin NEGATIVE NEGATIVE Urine Urobilinogen 0.2 < = 1.0 MG/DL Urine Leukocyte Esterase NEGATIVE NEGATIVE Urine RBC (Auto) NEGATIVE NEGATIVE Urine RBC NONE /HPF Urine WBC 0-2 /HPF Urine Squamous Epithelial Cells 5-10 /HPF Urine Crystals NONE /LPF Urine Bacteria TRACE /HPF Urine Casts NONE /LPF Urine Mucus NEGATIVE /LPF Urine Culture Indicated NO OB - Assessment/Plan/Diagnosis Assessment Assessment: active labor Admission Dx 33 yo @ 38.3 Persistent tachycardia Maternal tachycardia Active labor (made change 1-3cm) GBS neg Admission Status: Inpatient Order (span 2 midnights) Reason for Inpatient Admission: Active labor at term Plan Plan: Expectant Management VIGNESH FOSS DO Feb 21, 2019 08:00 POS
--- NOTE | 2019-02-21 12:14 | OB Labor & Delivery Record ---
L&D History Date of Service Date of Service: Feb 21, 2019 History Expected Date of Delivery: Mar 04, 2019 Gestational Age in Weeks: 38 Hx : 4 Hx Para: 2 Complications Events: Routine care Operative Indications (Cesarea: N/A-Vaginal Delivery Intrapartal Events: None L&D Stage1 Stage One Onset of Labor - Date: Feb 21, 2019 Monitors and Tracing Monitor Mode: Internal Heart Rate: 175 Monitor Accelerations: Uniform Station: -1 Fdc Variability: Average (6-10) Short Term Variability: Present Presentation: Vertex Vital Signs VS - Last 72 Hours, by Label POS 02/21/19 02/21/19 02/21/19 02/21/19 04:47 05:00 07:20 07:45 Temp 37.2 37.2 35.8 Pulse 140 140 131 135 Resp 18 18 18 18 B/P (MAP) 99/55 (70) 119/59 (79) Pulse Ox 97 97 97 97 O2 Delivery Room Air Room Air Room Air Room Air 02/21/19 02/21/19 02/21/19 02/21/19 08:00 08:15 08:30 08:45 Pulse 137 131 133 130 Resp 18 18 18 18 B/P (MAP) 131/85 (100) 123/70 (87) 120/70 (87) 120/71 (87) Pulse Ox 99 99 98 98 O2 Delivery Room Air Room Air Room Air Room Air 02/21/19 02/21/19 02/21/19 09:00 09:15 09:30 Pulse 133 131 129 Resp 18 18 18 B/P (MAP) 139/76 (97) 126/76 (93) 124/79 (94) Pulse Ox 97 97 95 O2 Delivery Room Air Room Air Room Air Rupture of Membranes Spontaneous Ruture of Membrane: No Amniotic Membrane Rupture Time: 0805 Amniotic Membrane Fluid Desc.: Clear Vaginal Bleeding Description: Normal Show Progress/Notes Patient progressed with low dose pitocin augmentation to complete and + 2 station without any pain medication nor epidural L&D Stage2 Stage Two Stage II Date: Feb 21, 2019 Monitors and Tracing Monitor Mode: Internal Heart Rate: 175 Monitor Decelerations: Variable Fdc Variability: Average (6-10) Short Term Variability: Present Position: Right Occiput Anterior Presentation: Vertex Cord Descript/Complications Cord Vessel Description: 3 Vessels Delivery Type Delivery Method: Spontaneous Vaginal Anterior Shoulder: Right Episiotomy/Perineal Laceration Laceraction(s)/Extensions: No Condition of Delivery 1 minute Comment: 8 5 minute Comment: 9 Notes Live female weight 7lbs 13 oz Condition of Condition of Infant: Living Exam: No Observed Abnormalities Resuscitation Resuscitation: N/A - Spontaneous Resp L&D Stage3 Stage Three Stage III Date: Feb 21, 2019 Pictocin Pitocin Administration mu/min: 4 Pitocin ml/hr: 4 Pitocin Administration Comment: pitocin increased wide open after delivery of placenta Placenta Delivery Placenta Delivery: Spontaneous Delivery Summary Summary Estimated blood loss (mL): 300 Attending at delivery: Vignesh Foss DO Condition of Delivery Examined: Cervix Examined, Uterus Explored Post Hemorrhage: No Condition of Mother stable Condition of (s) stable VIGNESH FOSS DO Feb 21, 2019 12:14 pm POS
[2019-02-21] MEDS ORDERED: BENZOCAINE/MENTHOL (DERMOPLAST) 56 ML CAN TP PRN (12:15)
[2019-02-21] MEDS ORDERED: HYDROcodone/APAP 5 MG/325 MG (LORTAB) TAB PO PRN (12:15)
[2019-02-21] MEDS ORDERED: WITCH HAZEL(TUCKS) 40 EA JAR TOP PRN (12:15)
[2019-02-21] MEDS ORDERED: TETANUS,DIPTH,PERTUSS P/F (BOOSTRIX) 0.5 ML VIAL IM ONE (12:15)
[2019-02-21] MEDS ORDERED: MEASLES,MUMPS,RUBELLA 1 EA INJ SQ ONE (12:15)
[2019-02-21] MEDS: IBUPROFEN 600 MG (MOTRIN) TAB PO SCH ×2 (12:50→17:45)
--- NOTE | 2019-02-21 19:18 | NUR ---
report given to next shift.
[2019-02-21] MEDS: DOCUSATE SODIUM 100 MG (COLACE) CAP PO SCH (20:49)
[2019-02-22 01:00] VITALS: BP 122/68
[2019-02-22] MEDS: IBUPROFEN 600 MG (MOTRIN) TAB PO SCH ×3 (01:02→13:16)
[2019-02-22 05:15] VITALS: BP 135/91
[2019-02-22 06:42] LABS: BASOPHILS % (AUTO) 0 % (0-10); EOSINOPHILS % (AUTO) 0 % (0-10); HEMATOCRIT 37 % (35-52); HEMOGLOBIN 11.8 G/DL (11.5-16.0); LYMPHOCYTES # (AUTO) 0.8 X 10^3 (1.0-4.0); LYMPHOCYTES % (AUTO) 6 % (12-44); MEAN CORPUSCULAR HEMOGLOBIN 29 PG (25-34); MEAN CORPUSCULAR HGB CONC 32 G/DL (32-36); MEAN CORPUSCULAR VOLUME 91 FL (80-99); MEAN PLATELET VOLUME 10.8 FL (7.4-10.4); MONOCYTES # (AUTO) 0.6 X 10^3 (0.0-1.0); MONOCYTES % (AUTO) 5 % (0-12); NEUTROPHILS # (AUTO) 11.3 X 10^3 (1.8-7.8); NEUTROPHILS % (AUTO) 89 % (42-75); PLATELET COUNT 176 10^3/uL (130-400); RED CELL DISTRIBUTION WIDTH 13.8 % (10.0-14.5); WHITE BLOOD COUNT 12.7 10^3/uL (4.3-11.0)
[2019-02-22] MEDS ORDERED: PRENATAL VITAMIN 1 EA TAB PO SCH (07:00)
[2019-02-22] MEDS: DOCUSATE SODIUM 100 MG (COLACE) CAP PO SCH (07:55)
--- NOTE | 2019-02-22 07:56 | Postpartum Progress Note ---
Note Note Day # 1 Subjective: Patient is without complaints. Ambulating, voiding. Tolerating a regular diet without nausea or vomiting. Normal lochia. Pain is well controlled with oral pain medications. Objective: Physical Exam: General - Alert and oriented, no apparent distress Abdomen - Soft, appropriately tender to palpation, non-distended, fundus firm at umbilicus Extremities - no edema, negative Jair's bilaterally Assessment: PPD 1 NVD Plan: Routine care. Encourage breast feeding. Encourage ambulation. Ferrous sulfate supplementation. Plan for discharge today Vitals - Labs Vital Signs - I&O Vital Signs Date Time Temp Pulse Resp B/P (MAP) Pulse Ox O2 Delivery O2 Flow Rate FiO2 02/22/19 05:15 36.6 119 18 135/91 (106) 98 Room Air 02/22/19 01:00 36.6 133 18 122/68 (86) 98 Room Air 02/21/19 20:49 36.1 130 18 129/75 (93) 98 Room Air 02/21/19 15:52 36.7 133 18 116/69 (85) 97 Room Air 02/21/19 12:30 137 18 123/68 (86) Room Air 02/21/19 12:15 141 18 131/78 (95) Room Air 02/21/19 12:00 131 18 129/78 (95) Room Air 02/21/19 11:45 134 18 111/79 (90) Room Air 02/21/19 11:30 139 18 134/69 (90) Room Air 02/21/19 11:15 139 18 139/67 (91) Room Air 02/21/19 11:00 36.2 146 18 147/85 (105) Room Air 02/21/19 10:45 18 Room Air 02/21/19 10:44 36.7 02/21/19 10:30 148 18 119/68 (85) Room Air 02/21/19 10:15 136 18 121/80 (94) Room Air 02/21/19 10:00 134 18 113/76 (88) 95 Room Air 02/21/19 09:45 131 18 119/71 (87) 95 Room Air 02/21/19 09:30 129 18 124/79 (94) 95 Room Air 02/21/19 09:15 131 18 126/76 (93) 97 Room Air 02/21/19 09:00 133 18 139/76 (97) 97 Room Air 02/21/19 08:45 130 18 120/71 (87) 98 Room Air 02/21/19 08:30 133 18 120/70 (87) 98 Room Air 02/21/19 08:15 131 18 123/70 (87) 99 Room Air 02/21/19 08:00 137 18 131/85 (100) 99 Room Air Labs Laboratory Tests 02/22/19 06:22: White Blood Count 12.7H, Red Blood Count 4.06L, Hemoglobin 11.8, Hematocrit 37, Mean Corpuscular Volume 91, Mean Corpuscular Hemoglobin 29, Mean Corpuscular Hemoglobin Concent 32, Red Cell Distribution Width 13.8, Platelet Count 176, Mean Platelet Volume 10.8H, Neutrophils (%) (Auto) 89H, Lymphocytes (%) (Auto) 6L, Monocytes (%) (Auto) 5, Eosinophils (%) (Auto) 0, Basophils (%) (Auto) 0, Neutrophils # (Auto) 11.3H, Lymphocytes # (Auto) 0.8L, Monocytes # (Auto) 0.6, Eosinophils # (Auto) 0.0, Basophils # (Auto) 0.0 VIGNESH FOSS DO Feb 22, 2019 07:56 POS
[2019-02-22] MEDS ORDERED: FERR325T18 PO (07:57)
[2019-02-22] MEDS ORDERED: DOCU100C37 PO (07:58)
[2019-02-22] MEDS ORDERED: ACHD5005 PO (07:58)
[2019-02-22] MEDS ORDERED: Benzocaine/Menthol TP (07:58)
[2019-02-22] MEDS ORDERED: IBUP-844 PO (07:58)
--- NOTE | 2019-02-22 07:58 | Discharge Inst-Women's Service ---
Discharge Inst-Women's Serv Depart Medication/Instructions New, Converted or Re-Newed RX: RX on Chart Problems Reviewed?: Yes Consults/Follow Up Additional Follow Up: Yes Orders/Referrals Dr. Foss in 6 weeks Activity Activity: Activity as Tolerated Driving Instructions: No Driving for 1 Week NO SMOKING: NO SMOKING Nothing Inside Vagina: No Douching, No [place], No Tampons Diet Discharge Diet: No Restrictions Symptoms to Report to : Bleeding Excessive, Pain Increased, Fever Over 101 Degrees F, Vaginal Bleeding Increase, Questions/Concerns VIGNESH FOSS DO Feb 22, 2019 07:58 POS
[2019-02-22 08:00] VITALS: BP 127/84
[2019-02-22] MEDS ORDERED: FERROUS SULF 325 MG (IRON) TAB PO SCH (08:00)
--- NOTE | 2019-02-22 08:00 | NUR ---
initial shift assessment completed, see interventions for further. POC reviewed, states understanding.
[2019-02-22] MEDS ORDERED: DOCUSATE CALCIUM 240 MG (SURFAK) CAP PO SCH (09:00)
--- NOTE | 2019-02-22 11:28 | NUR ---
Rhogam given in Rt.GM.
--- NOTE | 2019-02-22 14:28 | NUR ---
dismissal instructions given, verbalizes understanding. reviewed follow up appointment and Rx's. signature page signed, placed on chart.
--- NOTE | 2019-02-22 15:00 | NUR ---
pt ambulated to private vehicle with SHANICE Nino , and @ side. secured in rear facing car seat. pt stable with no sx's of distress noted.
== END 2019-02-22 15:00 | disposition home or self-care (01) | DRG 807 ==
LOC: WSo 04:26 → LDRP 04:27 → WSo 04:59 → LDRP 12:47
PROVIDERS: ADMIT Obstetrics & Gynecology; ATTEND Obstetrics & Gynecology
PROC: 10E0XZZ Delivery of Products of Conception, External Approach (ICD-10-PCS; principal; 2019-02-21)
DX: O76 Abnormality in fetal heart rate and rhythm complicating labor and delivery (principal); Z37.0 Single live birth; O75.89 Other specified complications of labor and delivery; R00.0 Tachycardia, unspecified; Z3A.38 38 weeks gestation of pregnancy; Z23 Encounter for immunization
CPT/HCPCS: 36415; 81000; 83033; 85007; 85025; 85027; 86850; 86870; 86900; 86901; 90707; 99212

== ENCOUNTER 2019-05-31 05:29 | Outpatient (CLI) | payer BC, OTHER ==
[~2019-05-31] VITALS: Ht 170 cm; Wt 74.5 kg
[~2019-05-31 05:29] MED LIST changes: +ACHD5005 PO; +Benzocaine/Menthol TP; +IBUP-844 PO
== END 2019-05-31 13:09 | disposition home or self-care (01) ==
LOC: PREOP 05:29
PROVIDERS: ATTEND Surgery
DX: Z01.818 Encounter for other preprocedural examination (principal)

== ENCOUNTER → 2021-02-10 | Outpatient (CLI) | payer BC, OTHER ==
[~2021-02-10] MED LIST changes: +DOCU-143 PO
--- NOTE | 2021-02-10 15:24 | Diagnostic Imaging Report ---
INDICATION: Routine care. TECHNIQUE: Multiple real-time grayscale images were obtained over the gravid uterus. COMPARISON: None. FINDINGS: There is a single live fetus in a variable presentation. heart rate was recorded at 156 BPM. Placenta is posterior. Amniotic fluid volume is normal. The posterior placenta is somewhat low-lying with the tip located approximately 3 cm from the internal cervical os. survey demonstrates kidneys, bladder, and stomach to be unremarkable. brain is unremarkable. There is a four-chamber heart. There is a three-vessel cord with normal insertion. spine is unremarkable. Biometrical measurements are as follows: Biparietal 5.03 cm, age 21 weeks 2 days. Head circumference 18.46 cm, age 20 weeks 6 days. Abdominal circumference 15.90 cm, age 21 weeks 1 days. Femur length 3.5 cm, age 21 weeks 1 days. Sonographic estimate age: 21 weeks 1 days. Sonographic estimated date of delivery: 06/22/21. Estimated Weight: 393 gm (+/- 57 gm). LMP percentile: 54%. heart rate: 156 beats per minute. number: 1 of 1. IMPRESSION: Single live IUP of approximately 21 weeks 1 day gestational age. Estimated date of confinement sonographically is 06/22/2021. No complicating features are identified. Dictated by: Dictated on workstation # [id number]
== END ==
LOC: RAD 12:30
PROVIDERS: ATTEND Nurse Practitioner Women's Health
DX: Z34.02 Encounter for supervision of normal first pregnancy, second trimester (principal); Z3A.21 21 weeks gestation of pregnancy
CPT/HCPCS: 76805

== ENCOUNTER 2021-06-16 22:35 | Outpatient (CLI) | payer BC, OTHER ==
[~2021-06-16] VITALS: Ht 170.1 cm; Wt 190.0 kg
[2021-06-16 22:35] VITALS: BP 140/89
[2021-06-16] MEDS: OXYTOCIN PRE-MIX DRIP 500 ML IV SCH ×2 (22:43→23:03)
[2021-06-16 22:45] VITALS: BP 125/93
[2021-06-16 23:00] VITALS: BP 130/87
[2021-06-16 23:15] VITALS: BP 136/98
[2021-06-16 23:30] VITALS: BP 127/82
[2021-06-16 23:45] VITALS: BP 127/82
[2021-06-17] VITALS: BP 133/87
[2021-06-17 00:30] VITALS: BP 111/79
[2021-06-17 02:35] VITALS: BP 116/78
--- NOTE | 2021-06-22 11:22 | Physician Query-Final Dx ---
TATIANA BURGOS 06/22/21 1122: Final Diagnosis Give Final Diagnosis Please give Final Diagnosis LYNETTE COON DO 06/23/21 1808: Final Diagnosis Give Final Diagnosis 38 week gestation delivery away from hospital TATIANA BURGOS Jun 22, 2021 11:22 LYNETTE COON DO Jun 23, 2021 18:08
== END 2021-06-17 02:35 | disposition home or self-care (01) ==
LOC: LDRP 22:35 → WSo 22:35 → UNDOADMOB 22:35 → UNDODISOB 06-17 02:35 → WSo 06-17 02:35
PROVIDERS: ATTEND Obstetrics & Gynecology
DX: Z39.0 Encounter for care and examination of mother immediately after delivery (principal); Z3A.38 38 weeks gestation of pregnancy
CPT/HCPCS: 96360